=== PATIENT | female | born 1975 | race Caucasian/White ===

== ENCOUNTER 2023-05-13 15:39 | Emergency (ER) | payer SELFPAY ==
[~2023-05-13] VITALS: Ht 165.1 cm; Wt 79.6 kg
[2023-05-13] VITALS (10 sets, daily range): BP systolic 116–158; BP diastolic 77–102
[2023-05-13 16:37] LABS: BASO% 0.1 % (0-3); HEMATOCRIT 37.4 % (37.0-47.0); HEMOGLOBIN 12.7 g/dl (12.0-16.0); IMMATURE GRANULOCYTES 0.4 % (0.0-5.0); LYMPH% 4.2 % (15-41); MEAN CELL VOLUME 98.4 fL CALC (80.0-100.0); MEAN CORPUSCULAR HGB 33.4 pG CALC (26.0-32.0); MONO% 11.5 % (2-13); NEUT# 11.32 thou/uL (2.00-7.15); NEUT% 83.8 % (42-76); RED BLOOD COUNT 3.8 mill/uL (4.20-5.60); RED CELL DISTRI WIDTH 13.5 % (11.5-15.5)
[2023-05-13 16:59] LABS: URINE BLOOD DIPSTICK LARGE (NEGATIVE); URINE COLOR DK. YELLOW; URINE GLUCOSE - DIPSTICK NEGATIVE (NEGATIVE); URINE KETONE TRACE mg/dL (NEGATIVE); URINE LEUK ESTERASE LARGE (NEGATIVE); URINE NITRITE - DIPSTICK NEGATIVE (Negative); URINE PROTEIN - DIPSTICK >=300 mg/dL (NEG-TRACE); URINE SPECIFIC GRAVITY 1.025; URINE UROBILINOGEN - DIPSTICK >=8.0 E.U./dL (0.2)
[2023-05-13 17:00] LABS: URINE BACTERIA MANY hpf; URINE SQUAMOUS EPITHELIAL CELL FEW EPI/hpf (0-FEW); URINE WBC >100 WBC/hpf (0-5)
[2023-05-13 17:03] LABS: ALBUMIN 3.3 g/dL (3.2-5.0); BILIRUBIN, TOTAL 1.8 mg/dL (0.02-1.3); CREATININE 1.2 mg/dL (0.5-1.0); POTASSIUM 3.2 mmol/l (3.5-5.1); TOTAL PROTEIN 6.5 g/dL (6.3-8.2)
== END 2023-05-13 21:56 | disposition short-term general hospital (02) | DRG 690 ==
LOC: ED 15:39
PROVIDERS: Nurse Practitioner
DX: N13.6 Pyonephrosis (principal); Z87.442 Personal history of urinary calculi; Z87.440 Personal history of urinary (tract) infections; B19.20 Unspecified viral hepatitis C without hepatic coma
CPT/HCPCS: Q9967

== ENCOUNTER 2023-05-16 05:33 | Emergency (ER) | payer SELFPAY ==
[2023-05-16] VITALS (9 sets, daily range): BP systolic 120–153; BP diastolic 72–119
[~2023-05-16] VITALS: Ht 165.1 cm; Wt 79.0 kg
[2023-05-16] MEDS ORDERED: LEVOFLOXACIN500MG PO (06:48)
[2023-05-16 08:12] LABS: URINE BILIRUBIN - DIPSTICK NEGATIVE (NEGATIVE); URINE BLOOD DIPSTICK LARGE (NEGATIVE); URINE COLOR YELLOW; URINE GLUCOSE - DIPSTICK NEGATIVE (NEGATIVE); URINE KETONE NEGATIVE (NEGATIVE); URINE PROTEIN - DIPSTICK 30 mg/dL (NEG-TRACE); URINE SPECIFIC GRAVITY <=1.005
[2023-05-16 08:13] LABS: URINE LEUK ESTERASE SMALL (NEGATIVE); URINE NITRITE - DIPSTICK NEGATIVE (Negative)
[2023-05-16 08:17] LABS: URINE RBC 25-50 RBC/hpf (0-5)
[2023-05-16 08:19] LABS: URINE BACTERIA FEW hpf
[2023-05-16 08:48] LABS: BASO% 0.1 % (0-3); EOS% 0.1 % (0-8); HEMATOCRIT 31.5 % (37.0-47.0); IMMATURE GRANULOCYTES 1.5 % (0.0-5.0); LYMPH% 10.3 % (15-41); MEAN CELL VOLUME 99.1 fL CALC (80.0-100.0); MEAN CORPUSCULAR HGB 32.7 pG CALC (26.0-32.0); NEUT# 7.5 thou/uL (2.00-7.15); RED BLOOD COUNT 3.18 mill/uL (4.20-5.60); RED CELL DISTRI WIDTH 13.8 % (11.5-15.5)
[2023-05-16 08:53] LABS: ALKALINE PHOSPHATASE 162 u/l (38-126); BUN 13 mg/dL (7-17); BUN/CREATININE RATIO 13 (12-20 (CALC)); CARBON DIOXIDE 20 mmol/l (22-30); CHLORIDE 107 mmol/l (95-108); GFR FOR AFR.AMER. > 60 ML/MIN (>=60 (CALC)); GFR OTHER RACES 59 ML/MIN (>=60 (CALC)); POTASSIUM 3.1 mmol/l (3.5-5.1); TOTAL PROTEIN 6.4 g/dL (6.3-8.2)
[2023-05-16 08:55] LABS: ANION GAP 17 (6-22 (CALC)); BILIRUBIN, TOTAL 0.9 mg/dL (0.02-1.3); HEMOGLOBIN 10.4 g/dl (12.0-16.0); SGOT/AST 232 u/l (14-36); SODIUM 141 mmol/l (137-146)
== END 2023-05-16 12:37 | disposition short-term general hospital (02) | DRG 690 ==
LOC: ED 05:33
PROVIDERS: Family Medicine
PROC: 02HV33Z Insertion of Infusion Device into Superior Vena Cava, Percutaneous Approach (ICD-10-PCS; principal; 2023-05-16)
DX: N13.6 Pyonephrosis (principal); F17.200 Nicotine dependence, unspecified, uncomplicated; Z59.00 Homelessness unspecified; Z87.442 Personal history of urinary calculi

== ENCOUNTER 2023-12-21 05:33 | Observation (INO) | payer SELFPAY ==
[2023-12-21] VITALS (11 sets, daily range): BP systolic 103–156; BP diastolic 59–134
[~2023-12-21] VITALS: Ht 165.1 cm; Wt 90.0 kg
[~2023-12-21 05:33] MED LIST: BACTRIM DS1 TAB PO; IBUPROFEN600 MG PO; LEVOFLOXACIN500MG PO; TAMSULOSIN0.4 MG PO
[2023-12-21 06:31] LABS: URINE BILIRUBIN - DIPSTICK Negative (NEGATIVE); URINE BLOOD DIPSTICK Moderate (NEGATIVE); URINE COLOR Yellow; URINE GLUCOSE - DIPSTICK Negative (NEGATIVE); URINE LEUK ESTERASE Large (NEGATIVE); URINE NITRITE - DIPSTICK Negative (Negative); URINE PH 5.5 (4.5-8.0); URINE PROTEIN - DIPSTICK 100 mg/dL (NEG-TRACE); URINE UROBILINOGEN - DIPSTICK 0.2 E.U./dL (0.2)
[2023-12-21 06:32] LABS: URINE KETONE Negative (NEGATIVE)
[2023-12-21 06:35] LABS: URINE BACTERIA MANY hpf; URINE EPITHELIAL CELLS MODERATE EPI/hpf (0-FEW); URINE WBC >100 WBC/hpf (0-5)
[2023-12-21 06:51] LABS: BASO% 0.4 % (0-3); HEMATOCRIT 43.6 % (37.0-47.0); HEMOGLOBIN 14.5 g/dl (12.0-16.0); IMMATURE GRANULOCYTES 0.4 % (0.0-5.0); LYMPH% 41.7 % (15-41); MEAN CELL VOLUME 104.3 fL CALC (80.0-100.0); MEAN CORPUSCULAR HGB 34.7 pG CALC (26.0-32.0); MEAN CORPUSCULAR HGB CONC 33.3 g/dL CAL (32.0-36.0); MONO% 7.2 % (2-13); NEUT# 3.78 thou/uL (2.00-7.15); NEUT% 49.3 % (42-76); RED BLOOD COUNT 4.18 mill/uL (4.20-5.60); RED CELL DISTRI WIDTH 12.4 % (11.5-15.5)
[2023-12-21 07:05] LABS: ANION GAP 18 (6-22 (CALC)); BUN 13 mg/dL (7-17); BUN/CREATININE RATIO 17 (12-20 (CALC)); CARBON DIOXIDE 22 mmol/l (22-30); CHLORIDE 109 mmol/l (95-108); CREATININE 0.8 mg/dL (0.5-1.0); ETHYL ALCOHOL 274 mg/dl (0-30); GFR FOR AFR.AMER. > 60 ML/MIN (>=60 (CALC)); GFR OTHER RACES > 60 ML/MIN (>=60 (CALC)); POTASSIUM 4.2 mmol/l (3.5-5.1); SODIUM 145 mmol/l (137-146)
== END 2023-12-21 15:31 | disposition left against medical advice (07) | DRG 694 ==
LOC: ED 05:33 → ED-I 06:00 → ED 11:19 → ED-I 11:20 → ICU 14:06
PROVIDERS: Family Medicine; ADMIT Student in an Organized Health Care Education/Training Program; ATTEND Student in an Organized Health Care Education/Training Program
PROC: 02HV33Z Insertion of Infusion Device into Superior Vena Cava, Percutaneous Approach (ICD-10-PCS; principal; 2023-12-21)
DX: N20.2 Calculus of kidney with calculus of ureter (principal); N39.0 Urinary tract infection, site not specified; J44.9 Chronic obstructive pulmonary disease, unspecified; F41.9 Anxiety disorder, unspecified; F17.210 Nicotine dependence, cigarettes, uncomplicated; Z59.00 Homelessness unspecified; Z87.440 Personal history of urinary (tract) infections; Z87.442 Personal history of urinary calculi; Z86.711 Personal history of pulmonary embolism; Z20.822 Contact with and (suspected) exposure to COVID-19

== ENCOUNTER 2024-05-15 02:16 | Inpatient (IN) | payer SELFPAY ==
[2024-05-15] VITALS (8 sets, daily range): BP systolic 125–161; BP diastolic 56–95
[~2024-05-15] VITALS: Ht 165.1 cm; Wt 79.0 kg
[~2024-05-15 02:16] MED LIST changes: +CEPHALEXIN500 M1 PO; +OMNICEF300 MG PO
[2024-05-15] MEDS ORDERED: PT NOT TAKING MEDS (02:36)
[2024-05-15] MEDS ORDERED: KETOROLAC TROMETHAMINE 15 MG/ML SDV IV STA (03:21)
[2024-05-15 03:45] LABS: BASO% 0.5 % (0-3); EOS% 2.1 % (0-8); IMMATURE GRANULOCYTES 1.3 % (0.0-5.0); LYMPH% 51.9 % (15-41); MEAN CELL VOLUME 102.3 fL CALC (80.0-100.0); MEAN CORPUSCULAR HGB 32.9 pG CALC (26.0-32.0); MEAN CORPUSCULAR HGB CONC 32.2 g/dL CAL (32.0-36.0); MONO% 7.7 % (2-13); NEUT# 2.28 thou/uL (2.00-7.15); NEUT% 36.5 % (42-76); RED BLOOD COUNT 3.98 mill/uL (4.20-5.60); RED CELL DISTRI WIDTH 14.5 % (11.5-15.5)
[2024-05-15 03:49] LABS: HEMATOCRIT 40.7 % (37.0-47.0); HEMOGLOBIN 13.1 g/dl (12.0-16.0)
[2024-05-15 03:51] LABS: URINE COLOR Yellow
[2024-05-15 03:52] LABS: URINE GLUCOSE - DIPSTICK Negative (NEGATIVE)
[2024-05-15 03:53] LABS: URINE BILIRUBIN - DIPSTICK Negative (NEGATIVE); URINE KETONE Negative (NEGATIVE)
[2024-05-15 03:54] LABS: URINE SPECIFIC GRAVITY 1.015
[2024-05-15 03:55] LABS: URINE BLOOD DIPSTICK Moderate (NEGATIVE); URINE NITRITE - DIPSTICK Negative (Negative); URINE PROTEIN - DIPSTICK Trace mg/dL (NEG-TRACE); URINE UROBILINOGEN - DIPSTICK 0.2 E.U./dL (0.2)
[2024-05-15 03:56] LABS: URINE LEUK ESTERASE Large (NEGATIVE)
[2024-05-15 03:58] LABS: ALBUMIN 3.9 g/dL (3.2-5.0); BILIRUBIN, TOTAL 0.6 mg/dL (0.02-1.3); CREATININE 0.9 mg/dL (0.5-1.0); POTASSIUM 3.7 mmol/l (3.5-5.1); TOTAL PROTEIN 7.5 g/dL (6.3-8.2)
[2024-05-15 04:02] LABS: URINE BACTERIA MODERATE hpf; URINE SQUAMOUS EPITHELIAL CELL FEW EPI/hpf (0-FEW); URINE WBC 20-50 WBC/hpf (0-5); URINE YEAST MODERATE hpf
[2024-05-15] MEDS ORDERED: VANCOMYCIN HCL 1 GM in SODIUM CHLORIDE 0.9% 250 ML IV ONE (04:40)
[2024-05-15] MEDS ORDERED: ACETAMINOPHEN 500 MG TAB PO ONE (04:40)
[2024-05-15] MEDS ORDERED: DICYCLOMINE HCL 20 MG/2 ML VIAL IM ONE (04:40)
[2024-05-15] MEDS ORDERED: SODIUM CHLORIDE 0.9% 1,000 ML IV ONE ×4 (04:40)
[2024-05-15] MEDS ORDERED: PIPERACILLIN Sodium-Tazobactam 3.375 GM in SODIUM CHLORIDE 0.9% 100 ML IV ONE (04:40)
[2024-05-15] MEDS ORDERED: PIPERACILLIN Sodium-Tazobactam 4.5 GM in SODIUM CHLORIDE 0.9% 100 ML IV STA (06:57)
[2024-05-15] MEDS ORDERED: VANCOMYCIN HCL 1 GM in SODIUM CHLORIDE 0.9% 250 ML IV STA (06:57)
[2024-05-15] MEDS ORDERED: ONDANSETRON 4 MG/TAB ODT PO PRN (07:00)
[2024-05-15] MEDS ORDERED: MAGNESIUM HYDROXIDE 30 ML UDC PO PRN (07:00)
[2024-05-15] MEDS ORDERED: FAMOTIDINE 10MG/ML 2ML SDV IV PRN (07:00)
[2024-05-15] MEDS ORDERED: ONDANSETRON HCl 4 MG/2 ML SDV IV PRN ×2 (07:00→12:55)
[2024-05-15] MEDS ORDERED: ALUM & MAG HYDROX-SIMETHICONE 30 ML PO PRN (07:00)
[2024-05-15] MEDS ORDERED: IBUPROFEN 800 MG/TAB PO PRN (07:00)
[2024-05-15] MEDS ORDERED: SODIUM CHLORIDE 0.9% 1,000 ML IV PRN (07:40)
[2024-05-15] MEDS ORDERED: ACETAMINOPHEN 325 MG/TAB PO PRN (07:40)
[2024-05-15] MEDS ORDERED: KETOROLAC TROMETHAMINE 30 MG/ML SDV IV PRN (11:15)
[2024-05-15] MEDS ORDERED: PANTOPRAZOLE SODIUM Sesquihydr 40 MG/TAB PO SCH (12:00)
[2024-05-15] MEDS ORDERED: LORazepam 2 MG/ML IM PRN (13:25)
[2024-05-15] MEDS ORDERED: cloNIDine HCL 0.1 MG/TAB PO PRN (13:25)
[2024-05-15] MEDS ORDERED: LORazepam 2 MG/ML IV PRN (13:25)
[2024-05-15] MEDS ORDERED: chlordiazePOXIDE HCL 25 MG CAP PO PRN (13:25)
[2024-05-15] MEDS ORDERED: MULTIPLE VITAMIN 10 ML,THIAMINE HCL 100 MG in DEXTROSE 5% / 0.9% NACL 1,000 ML IV SCH (15:30)
[2024-05-15] MEDS ORDERED: DEXTROSE IV ONE (15:57)
[2024-05-15] MEDS ORDERED: NACL IV ONE (15:57)
[2024-05-15] MEDS ORDERED: FLUCONAZOLE 50 MG TAB PO SCH (16:35)
[2024-05-15] MEDS ORDERED: LORazepam 0.5 MG/TAB PO PRN (19:20)
[2024-05-15] MEDS ORDERED: DEXTROSE 50% 50 ML/SYR IV PRN (19:20)
[2024-05-15] MEDS ORDERED: DEXTROSE 250 ML IV PRN (19:20)
[2024-05-15 20:56] LABS: C. DIFFICILE TOXIN A&B NEGATIVE (NEGATIVE)
[2024-05-15] MEDS ORDERED: INSULIN LISPRO 100 UNITS/ML ML SC SCH (21:00)
[2024-05-15] MEDS ORDERED: ENOXAPARIN SODIUM 40 MG/0.4 ML SYR SC SCH (21:00)
[2024-05-16] MEDS ORDERED: VANCOMYCIN HCL 125 MG/CAP PO SCH
[2024-05-16 00:45] VITALS: BP 160/72
[2024-05-16 04:21] VITALS: BP 155/84
[2024-05-16 05:30] LABS: BASO% 0.5 % (0-3); IMMATURE GRANULOCYTES 0.2 % (0.0-5.0); LYMPH% 39.2 % (15-41); MEAN CORPUSCULAR HGB 33.8 pG CALC (26.0-32.0); MEAN CORPUSCULAR HGB CONC 32.5 g/dL CAL (32.0-36.0); MONO% 12.7 % (2-13); NEUT# 1.82 thou/uL (2.00-7.15); NEUT% 45.4 % (42-76); RED BLOOD COUNT 2.99 mill/uL (4.20-5.60)
[2024-05-16 05:42] LABS: HEMATOCRIT 31.1 % (37.0-47.0); HEMOGLOBIN 10.1 g/dl (12.0-16.0)
[2024-05-16 05:45] LABS: INTERNATIONAL NORMALIZED RATIO 1.2 RATIO (0.7-1.3)
[2024-05-16 05:48] LABS: BILIRUBIN, TOTAL 0.7 mg/dL (0.02-1.3); CREATININE 0.7 mg/dL (0.5-1.0); MAGNESIUM 1.5 mg/dL (1.6-2.3); POTASSIUM 3.7 mmol/l (3.5-5.1)
[2024-05-16 05:55] LABS: ALBUMIN 2.6 g/dL (3.2-5.0); TOTAL PROTEIN 5.5 g/dL (6.3-8.2)
[2024-05-16 07:22] VITALS: BP 141/79
[2024-05-16] MEDS ORDERED: TAMSULOSIN HCL 0.4 MG CAP PO SCH (08:00)
[2024-05-16] MEDS ORDERED: MAGNESIUM SULFATE HEPTAHYDRATE 50 ML IV SCH (09:00)
[2024-05-16] MEDS ORDERED: YEAST (S. BOULARDII)(S. CEREVI 250 MG CAP PO SCH (09:00)
[2024-05-16 10:40] VITALS: BP 133/57
[2024-05-16 14:13] VITALS: BP 147/75
[2024-05-16] MEDS ORDERED: FLUCONAZOLE 50 MG TAB PO SCH (15:00)
[2024-05-16 19:05] VITALS: BP 151/86
[2024-05-17] VITALS (13 sets, daily range): BP systolic 130–177; BP diastolic 62–99
[2024-05-17 06:32] LABS: HEMATOCRIT 31.4 % (37.0-47.0); HEMOGLOBIN 10.1 g/dl (12.0-16.0); MEAN CELL VOLUME 103.3 fL CALC (80.0-100.0); MEAN CORPUSCULAR HGB 33.2 pG CALC (26.0-32.0); MEAN CORPUSCULAR HGB CONC 32.2 g/dL CAL (32.0-36.0); RED BLOOD COUNT 3.04 mill/uL (4.20-5.60); RED CELL DISTRI WIDTH 13.6 % (11.5-15.5)
[2024-05-17 06:43] LABS: ALBUMIN 2.8 g/dL (3.2-5.0); BILIRUBIN, TOTAL 0.6 mg/dL (0.02-1.3); CREATININE 0.7 mg/dL (0.5-1.0); MAGNESIUM 1.7 mg/dL (1.6-2.3); POTASSIUM 3.7 mmol/l (3.5-5.1); TOTAL PROTEIN 5.8 g/dL (6.3-8.2)
[2024-05-17] MEDS ORDERED: DEXAMETHASONE SODIUM PHOSPHATE PF 10 MG/ML SDV IV ONE (08:34)
[2024-05-17] MEDS ORDERED: MIDAZOLAM HCL 2 MG/2 ML VIAL IV ONE (08:34)
[2024-05-17] MEDS ORDERED: ROCURONIUM BROMIDE 10 MG/ML 5ML VIAL IV ONE (08:34)
[2024-05-17] MEDS ORDERED: SUGAMMADEX SODIUM 200 MG/2 ML SDV IV ONE (08:34)
[2024-05-17] MEDS ORDERED: SUCCINYLCHOLINE CHLORIDE 20 MG/ML 10ML VIAL IV ONE (08:34)
[2024-05-17] MEDS ORDERED: LIDOCAINE HCL 2% 2ML SDV IV ONE (08:34)
[2024-05-17] MEDS ORDERED: ONDANSETRON HCl 4 MG/2 ML SDV IV ONE (08:34)
[2024-05-17] MEDS ORDERED: PROPOFOL 200 MG/20 ML VIAL IV ONE (08:34)
[2024-05-17] MEDS ORDERED: KETOROLAC TROMETHAMINE 30 MG/ML SDV IV ONE (08:34)
[2024-05-17] MEDS ORDERED: THIAMINE HCL 100 MG TAB PO SCH (09:00)
[2024-05-17] MEDS ORDERED: MULTIPLE VITAMIN TABLET PO SCH (09:00)
[2024-05-17] MEDS ORDERED: FOLIC ACID 1 MG/TAB PO SCH (09:00)
[2024-05-17] MEDS ORDERED: Iopamidol 300 (Isovue) 61% 100ML SDV IV ONE (09:25)
[2024-05-17] MEDS ORDERED: SODIUM CHLORIDE 0.9% 1,000 ML IV ONE ×3 (09:37→12:12)
[2024-05-17] MEDS ORDERED: FAMOTIDINE 10MG/ML 2ML SDV IV ONE (10:05)
[2024-05-17] MEDS ORDERED: cefTRIAXone SODIUM 1 GM/VIAL SDV ONE (10:28)
[2024-05-17] MEDS ORDERED: SODIUM CHLORIDE 0.9% 100 ML IV ONE ×2 (10:30)
[2024-05-17] MEDS ORDERED: GENTAMICIN SULFATE ONE (10:30)
[2024-05-17] MEDS ORDERED: STERILE WATER FOR IRRIGATION 1,000 ML BTL IR ONE (12:03)
[2024-05-17] MEDS ORDERED: PHENAZOPYRIDINE HCL 100 MG/TAB PO SCH (14:00)
[2024-05-18] VITALS (7 sets, daily range): BP systolic 133–182; BP diastolic 68–96
[2024-05-18 05:52] LABS: HEMATOCRIT 31.3 % (37.0-47.0); HEMOGLOBIN 10.4 g/dl (12.0-16.0); MEAN CELL VOLUME 101.3 fL CALC (80.0-100.0); MEAN CORPUSCULAR HGB 33.7 pG CALC (26.0-32.0); MEAN CORPUSCULAR HGB CONC 33.2 g/dL CAL (32.0-36.0); RED BLOOD COUNT 3.09 mill/uL (4.20-5.60); RED CELL DISTRI WIDTH 13.5 % (11.5-15.5)
[2024-05-18 06:18] LABS: ALBUMIN 3.1 g/dL (3.2-5.0); BILIRUBIN, TOTAL 0.6 mg/dL (0.02-1.3); CREATININE 0.8 mg/dL (0.5-1.0); MAGNESIUM 1.7 mg/dL (1.6-2.3); POTASSIUM 4.3 mmol/l (3.5-5.1); TOTAL PROTEIN 6.2 g/dL (6.3-8.2)
[2024-05-18] MEDS ORDERED: PHENAZOPYRIDINE HCL 100 MG/TAB PO PRN (09:45)
[2024-05-18] MEDS ORDERED: hydrALAZINE HCL 20 MG/ML VIAL(1 ML) IV PRN (10:30)
[2024-05-19 04:23] VITALS: BP 159/77
[2024-05-19 04:58] LABS: BASO% 0.1 % (0-3); EOS% 0.3 % (0-8); HEMOGLOBIN 9.4 g/dl (12.0-16.0); IMMATURE GRANULOCYTES 0.2 % (0.0-5.0); LYMPH% 18.1 % (15-41); MEAN CELL VOLUME 105.1 fL CALC (80.0-100.0); MEAN CORPUSCULAR HGB 34.1 pG CALC (26.0-32.0); MEAN CORPUSCULAR HGB CONC 32.4 g/dL CAL (32.0-36.0); MONO% 7.1 % (2-13); NEUT# 7.25 thou/uL (2.00-7.15); NEUT% 74.2 % (42-76); RED BLOOD COUNT 2.76 mill/uL (4.20-5.60); RED CELL DISTRI WIDTH 13.7 % (11.5-15.5)
[2024-05-19 05:10] LABS: ALBUMIN 2.9 g/dL (3.2-5.0); CREATININE 1.2 mg/dL (0.5-1.0); MAGNESIUM 1.7 mg/dL (1.6-2.3); POTASSIUM 3.9 mmol/l (3.5-5.1); TOTAL PROTEIN 5.8 g/dL (6.3-8.2)
[2024-05-19 05:13] LABS: BILIRUBIN, TOTAL 0.3 mg/dL (0.02-1.3)
[2024-05-19 06:20] VITALS: BP 168/93
[2024-05-19 10:46] VITALS: BP 171/82
[2024-05-19] MEDS ORDERED: TAMSULOSIN HCL0.4 MG PO (11:16)
[2024-05-19] MEDS ORDERED: PYRIDIUM200 MG PO (11:16)
[2024-05-19] MEDS ORDERED: CIPROFLOXACN500 MG PO (11:17)
[2024-05-19] MEDS ORDERED: (None)125 MG PO (11:18)
== END 2024-05-19 13:52 | disposition home or self-care (01) | DRG 660 ==
LOC: ED 02:16 → ED-I 06:36 → ED 07:00 → MS2 07:01
PROVIDERS: Internal Medicine; Internal Medicine Gastroenterology; Nurse Practitioner Family; ADMIT Internal Medicine; ATTEND Internal Medicine
PROC: 02HV33Z Insertion of Infusion Device into Superior Vena Cava, Percutaneous Approach (ICD-10-PCS; principal; 2024-05-15)
PROC: 0T778DZ Dilation of Left Ureter with Intraluminal Device, Via Natural or Artificial Opening Endoscopic (ICD-10-PCS; 2024-05-17)
PROC: 0TC18ZZ Extirpation of Matter from Left Kidney, Via Natural or Artificial Opening Endoscopic (ICD-10-PCS; 2024-05-17)
PROC: 0TC78ZZ Extirpation of Matter from Left Ureter, Via Natural or Artificial Opening Endoscopic (ICD-10-PCS; 2024-05-17)
PROC: 0TP98DZ Removal of Intraluminal Device from Ureter, Via Natural or Artificial Opening Endoscopic (ICD-10-PCS; 2024-05-17)
DX: N13.6 Pyonephrosis (principal); A04.72 Enterocolitis due to Clostridium difficile, not specified as recurrent; D68.51 Activated protein C resistance; E87.6 Hypokalemia; E83.42 Hypomagnesemia; R74.8 Abnormal levels of other serum enzymes; E11.9 Type 2 diabetes mellitus without complications; J44.9 Chronic obstructive pulmonary disease, unspecified; F41.9 Anxiety disorder, unspecified; F10.10 Alcohol abuse, uncomplicated; F17.200 Nicotine dependence, unspecified, uncomplicated; R00.1 Bradycardia, unspecified; T36.96XA Underdosing of unspecified systemic antibiotic, initial encounter; Z91.128 Patient's intentional underdosing of medication regimen for other reason; Z96.0 Presence of urogenital implants; Z86.14 Personal history of Methicillin resistant Staphylococcus aureus infection; Z86.711 Personal history of pulmonary embolism; Z87.442 Personal history of urinary calculi
CPT/HCPCS: J1100; J1650; J3475; Q9966

== ENCOUNTER 2024-05-21 17:00 | Emergency (ER) | payer SELFPAY ==
[~2024-05-21] VITALS: Ht 165.1 cm; Wt 79.0 kg
[2024-05-21] VITALS (38 sets, daily range): BP systolic 79–143; BP diastolic 32–82
[~2024-05-21 17:00] MED LIST changes: +(None)125 MG PO; +CIPROFLOXACN500 MG PO; +PT NOT TAKING MEDS; +PYRIDIUM200 MG PO; +TAMSULOSIN HCL0.4 MG PO
[2024-05-21] MEDS ORDERED: MULTIPLE VITAMIN 10 ML,THIAMINE HCL 100 MG in DEXTROSE 5% / 0.9% NACL 1,000 ML IV ONE (17:05)
[2024-05-21 17:57] LABS: BASO% 0.4 % (0-3); HEMOGLOBIN 11.3 g/dl (12.0-16.0); IMMATURE GRANULOCYTES 1.5 % (0.0-5.0); LYMPH% 34.8 % (15-41); MEAN CELL VOLUME 104.4 fL CALC (80.0-100.0); MEAN CORPUSCULAR HGB 33.4 pG CALC (26.0-32.0); MONO% 9.1 % (2-13); NEUT# 4.17 thou/uL (2.00-7.15); NEUT% 53.2 % (42-76); RED BLOOD COUNT 3.38 mill/uL (4.20-5.60); RED CELL DISTRI WIDTH 14.4 % (11.5-15.5)
[2024-05-21 17:58] LABS: HEMATOCRIT 35.3 % (37.0-47.0)
[2024-05-21 18:17] LABS: CREATININE 1.5 mg/dL (0.5-1.0); POTASSIUM 4.4 mmol/l (3.5-5.1)
[2024-05-21 18:20] LABS: ALBUMIN 4.1 g/dL (3.2-5.0); BILIRUBIN, TOTAL 0.9 mg/dL (0.02-1.3); TOTAL PROTEIN 7.7 g/dL (6.3-8.2)
[2024-05-21] MEDS ORDERED: DEXTROSE 250 ML IV ONE (18:50)
[2024-05-21 22:59] LABS: URINE BILIRUBIN - DIPSTICK Negative (NEGATIVE); URINE BLOOD DIPSTICK Moderate (NEGATIVE); URINE GLUCOSE - DIPSTICK Negative (NEGATIVE); URINE KETONE 15 mg/dL (NEGATIVE); URINE LEUK ESTERASE Trace (NEGATIVE); URINE NITRITE - DIPSTICK Negative (Negative); URINE PH 5.5 (4.5-8.0); URINE PROTEIN - DIPSTICK 100 mg/dL (NEG-TRACE); URINE UROBILINOGEN - DIPSTICK 0.2 E.U./dL (0.2)
[2024-05-21 23:13] LABS: URINE COLOR Yellow
[2024-05-21 23:14] LABS: URINE SQUAMOUS EPITHELIAL CELL MODERATE EPI/hpf (0-FEW)
[2024-05-21 23:16] LABS: URINE HYALINE CAST FEW lpf (NONE-RARE); URINE RBC 0-2 RBC/hpf (0-5)
[2024-05-21 23:17] LABS: URINE BACTERIA RARE hpf
[2024-05-22 02:35] VITALS: BP 136/82
== END 2024-05-22 02:35 | disposition home or self-care (01) | DRG 897 ==
LOC: ED 17:00
PROVIDERS: Family Medicine
DX: F10.129 Alcohol abuse with intoxication, unspecified (principal); D68.2 Hereditary deficiency of other clotting factors; Y90.8 Blood alcohol level of 240 mg/100 ml or more; E11.9 Type 2 diabetes mellitus without complications; J44.9 Chronic obstructive pulmonary disease, unspecified; F41.9 Anxiety disorder, unspecified; F17.200 Nicotine dependence, unspecified, uncomplicated; Z86.711 Personal history of pulmonary embolism

== ENCOUNTER 2024-07-08 19:34 | Emergency (ER) | payer SELFPAY ==
[~2024-07-08] VITALS: Ht 165.1 cm; Wt 79.0 kg
[2024-07-08] MEDS ORDERED: MORPHINE SULFATE 4 MG/ML VIAL IV ONE (20:00)
[2024-07-08] MEDS ORDERED: DICYCLOMINE HCL 10 MG/CAP PO ONE (20:00)
[2024-07-08] MEDS ORDERED: ONDANSETRON HCl 4 MG/2 ML SDV IV ONE (20:00)
[2024-07-08] MEDS ORDERED: KETOROLAC TROMETHAMINE 30 MG/ML SDV IV ONE (20:00)
[2024-07-08 20:04] VITALS: BP 114/88
[2024-07-08 20:44] LABS: BASO% 0.2 % (0-3); IMMATURE GRANULOCYTES 0.2 % (0.0-5.0); LYMPH% 16.9 % (15-41); MEAN CELL VOLUME 100.3 fL CALC (80.0-100.0); MEAN CORPUSCULAR HGB 34.1 pG CALC (26.0-32.0); NEUT# 3.7 thou/uL (2.00-7.15); NEUT% 71.7 % (42-76); RED BLOOD COUNT 3.99 mill/uL (4.20-5.60)
[2024-07-08 20:44] LABS: URINE BLOOD DIPSTICK Negative (NEGATIVE); URINE GLUCOSE - DIPSTICK 100 mg/dL (NEGATIVE); URINE KETONE 15 mg/dL (NEGATIVE); URINE LEUK ESTERASE Trace (NEGATIVE); URINE NITRITE - DIPSTICK Negative (Negative); URINE PROTEIN - DIPSTICK 100 mg/dL (NEG-TRACE); URINE SPECIFIC GRAVITY >=1.030
[2024-07-08 20:45] LABS: URINE COLOR Yellow
[2024-07-08 20:46] LABS: URINE SQUAMOUS EPITHELIAL CELL MODERATE EPI/hpf (0-FEW)
[2024-07-08 20:51] LABS: HEMOGLOBIN 13.6 g/dl (12.0-16.0)
[2024-07-08 20:56] LABS: ALBUMIN 4.1 g/dL (3.2-5.0); BILIRUBIN, TOTAL 1.1 mg/dL (0.02-1.3); CREATININE 0.9 mg/dL (0.5-1.0); POTASSIUM 3.7 mmol/l (3.5-5.1); TOTAL PROTEIN 7.8 g/dL (6.3-8.2)
[2024-07-08] MEDS ORDERED: cefTRIAXone SODIUM 2 GM in SODIUM CHLORIDE 0.9% 100 ML IV ONE (23:00)
[2024-07-09 00:20] VITALS: BP 136/99
== END 2024-07-09 00:23 | disposition left against medical advice (07) | DRG 690 ==
LOC: ED 19:34
PROVIDERS: Internal Medicine
DX: N13.6 Pyonephrosis (principal); D68.2 Hereditary deficiency of other clotting factors; E11.9 Type 2 diabetes mellitus without complications; J44.9 Chronic obstructive pulmonary disease, unspecified; F41.9 Anxiety disorder, unspecified; Z86.711 Personal history of pulmonary embolism; Z72.0 Tobacco use; Z53.29 Procedure and treatment not carried out because of patient's decision for other reasons

== ENCOUNTER 2024-11-02 00:20 | Inpatient (IN) | payer SELFPAY ==
[~2024-11-02] VITALS: Ht 165.1 cm; Wt 81.0 kg
[2024-11-02] VITALS (16 sets, daily range): BP systolic 108–160; BP diastolic 51–107
[2024-11-02] MEDS ORDERED: SODIUM CHLORIDE 0.9% 1,000 ML IV STA (00:39)
[2024-11-02 01:40] LABS: URINE BILIRUBIN - DIPSTICK Negative (NEGATIVE); URINE BLOOD DIPSTICK Small (NEGATIVE); URINE GLUCOSE - DIPSTICK Negative (NEGATIVE); URINE KETONE Negative (NEGATIVE); URINE NITRITE - DIPSTICK Negative (Negative); URINE PH 5.5 (4.5-8.0); URINE PROTEIN - DIPSTICK Negative (NEG-TRACE); URINE SPECIFIC GRAVITY <=1.005; URINE UROBILINOGEN - DIPSTICK 0.2 E.U./dL (0.2)
[2024-11-02 01:41] LABS: URINE COLOR Yellow; URINE LEUK ESTERASE Moderate (NEGATIVE)
[2024-11-02 01:42] LABS: BASO% 0.2 % (0-3); EOS% 0.7 % (0-8); HEMATOCRIT 33.9 % (37.0-47.0); HEMOGLOBIN 10.8 g/dl (12.0-16.0); IMMATURE GRANULOCYTES 0.1 % (0.0-5.0); LYMPH% 33.3 % (15-41); MEAN CELL VOLUME 113.8 fL CALC (80.0-100.0); MEAN CORPUSCULAR HGB 36.2 pG CALC (26.0-32.0); MEAN CORPUSCULAR HGB CONC 31.9 g/dL CAL (32.0-36.0); NEUT# 4.65 thou/uL (2.00-7.15); NEUT% 56.7 % (42-76); RED BLOOD COUNT 2.98 mill/uL (4.20-5.60); RED CELL DISTRI WIDTH 13.9 % (11.5-15.5)
[2024-11-02 01:46] LABS: URINE BACTERIA MODERATE hpf; URINE SQUAMOUS EPITHELIAL CELL FEW EPI/hpf (0-FEW)
[2024-11-02 01:50] LABS: ALBUMIN 3.6 g/dL (3.2-5.0); BILIRUBIN, TOTAL 1.5 mg/dL (0.02-1.3); CREATININE 1.1 mg/dL (0.5-1.0); POTASSIUM 3.8 mmol/l (3.5-5.1); TOTAL PROTEIN 7.9 g/dL (6.3-8.2)
[2024-11-02] MEDS ORDERED: IPRATROPIUM-Albuterol 0.5MG-2.5MG/3 ML NEB ONE (02:05)
[2024-11-02] MEDS ORDERED: methylPREDNISolone Sod Succ 40 MG/ML SDV IV ONE (02:10)
[2024-11-02] MEDS ORDERED: IBUPROFEN 600 MG/TAB PO ONE (02:15)
[2024-11-02] MEDS ORDERED: ACETAMINOPHEN 325 MG/TAB PO PRN (03:00)
[2024-11-02] MEDS ORDERED: MAGNESIUM HYDROXIDE 30 ML UDC PO PRN (03:00)
[2024-11-02] MEDS ORDERED: SODIUM CHLORIDE 0.9% 1,000 ML IV PRN (03:00)
[2024-11-02] MEDS ORDERED: SODIUM CHLORIDE 0.9% 50 ML IV ONE (03:36)
[2024-11-02] MEDS ORDERED: chlordiazePOXIDE HCL 25 MG CAP PO PRN (08:40)
[2024-11-02] MEDS ORDERED: LORazepam 2 MG/ML IV PRN (08:40)
[2024-11-02] MEDS ORDERED: KETOROLAC TROMETHAMINE 15 MG/ML SDV IV PRN (08:40)
[2024-11-02] MEDS ORDERED: MULTIPLE VITAMIN 10 ML,THIAMINE HCL 100 MG in SODIUM CHLORIDE 0.9% 1,000 ML IV SCH (10:00)
[2024-11-02] MEDS ORDERED: ENOXAPARIN SODIUM 40 MG/0.4 ML SYR SC SCH (21:00)
[2024-11-03] VITALS (12 sets, daily range): BP systolic 113–152; BP diastolic 69–87
[2024-11-03 05:42] LABS: BASO% 0.2 % (0-3); EOS% 0.2 % (0-8); HEMOGLOBIN 9.1 g/dl (12.0-16.0); IMMATURE GRANULOCYTES 0.2 % (0.0-5.0); LYMPH% 23.5 % (15-41); MEAN CORPUSCULAR HGB 36.8 pG CALC (26.0-32.0); MEAN CORPUSCULAR HGB CONC 32.6 g/dL CAL (32.0-36.0); MONO% 10.2 % (2-13); NEUT# 3.42 thou/uL (2.00-7.15); NEUT% 65.7 % (42-76); RED BLOOD COUNT 2.47 mill/uL (4.20-5.60); RED CELL DISTRI WIDTH 13.6 % (11.5-15.5)
[2024-11-03 05:53] LABS: BILIRUBIN, TOTAL 1.3 mg/dL (0.02-1.3); CREATININE 1.2 mg/dL (0.5-1.0); POTASSIUM 3.8 mmol/l (3.5-5.1); TOTAL PROTEIN 6.4 g/dL (6.3-8.2)
[2024-11-03 06:03] LABS: HEMATOCRIT 27.9 % (37.0-47.0)
[2024-11-03 06:09] LABS: ALBUMIN 2.8 g/dL (3.2-5.0); MAGNESIUM 1.2 mg/dL (1.6-2.3)
[2024-11-03] MEDS ORDERED: FAMOTIDINE 10MG/ML 2ML SDV IV ONE (07:00)
[2024-11-03] MEDS ORDERED: ISOVUE-300 (Iopamidol) 100 ML SDV IV ONE (07:15)
[2024-11-03] MEDS ORDERED: ONDANSETRON HCl 4 MG/2 ML SDV ONE (07:32)
[2024-11-03] MEDS ORDERED: MAGNESIUM SULFATE HEPTAHYDRATE 100 ML IV SCH (08:30)
[2024-11-03] MEDS ORDERED: ACETAMINOPHEN 100 ML IV ONE (08:45)
[2024-11-03] MEDS ORDERED: SODIUM CHLORIDE 1,000 ML BTL IR ONE (08:46)
[2024-11-03] MEDS ORDERED: SODIUM CHLORIDE 3,000 ML BAG FOR IRRIGATION IR ONE (08:46)
[2024-11-03] MEDS ORDERED: STERILE WATER FOR IRRIGATION 1,000 ML BTL IR ONE (08:46)
[2024-11-03] MEDS ORDERED: THIAMINE HCL 100 MG TAB PO SCH (09:00)
[2024-11-03] MEDS ORDERED: MULTIPLE VITAMIN TABLET PO SCH (09:00)
[2024-11-03] MEDS ORDERED: FOLIC ACID 1 MG/TAB PO SCH (09:00)
[2024-11-03] MEDS ORDERED: DEXTROSE 250 ML IV PRN (11:10)
[2024-11-03] MEDS ORDERED: MIDAZOLAM HCL 2 MG/2 ML VIAL IV ONE (12:58)
[2024-11-03] MEDS ORDERED: SUGAMMADEX SODIUM 200 MG/2 ML SDV IV ONE (12:58)
[2024-11-03] MEDS ORDERED: LIDOCAINE HCL 2% 2ML SDV IV ONE (12:58)
[2024-11-03] MEDS ORDERED: ROCURONIUM BROMIDE 10 MG/ML 5ML VIAL IV ONE (12:58)
[2024-11-03] MEDS ORDERED: SODIUM CHLORIDE 0.9% 1,000 ML BAG IV ONE (12:58)
[2024-11-03] MEDS ORDERED: DEXAMETHASONE SODIUM PHOSPHATE PF 10 MG/ML SDV IV ONE (12:58)
[2024-11-03] MEDS ORDERED: PROPOFOL 200 MG/20 ML VIAL IV ONE (12:58)
[2024-11-03] MEDS ORDERED: INSULIN LISPRO 100 UNITS/ML ML SC SCH (17:00)
[2024-11-04 04:18] VITALS: BP 132/71
[2024-11-04 05:17] LABS: ALBUMIN 2.6 g/dL (3.2-5.0); POTASSIUM 3.8 mmol/l (3.5-5.1); TOTAL PROTEIN 6.1 g/dL (6.3-8.2)
[2024-11-04 05:21] LABS: HEMOGLOBIN 8.6 g/dl (12.0-16.0); IMMATURE GRANULOCYTES 0.5 % (0.0-5.0); LYMPH% 10.7 % (15-41); MEAN CELL VOLUME 112.1 fL CALC (80.0-100.0); MEAN CORPUSCULAR HGB 37.1 pG CALC (26.0-32.0); MEAN CORPUSCULAR HGB CONC 33.1 g/dL CAL (32.0-36.0); MONO% 7.1 % (2-13); NEUT# 3.43 thou/uL (2.00-7.15); NEUT% 81.7 % (42-76); RED BLOOD COUNT 2.32 mill/uL (4.20-5.60)
[2024-11-04 05:22] LABS: CREATININE 0.9 mg/dL (0.5-1.0)
[2024-11-04 05:42] LABS: MAGNESIUM 1.6 mg/dL (1.6-2.3)
[2024-11-04 07:14] VITALS: BP 127/75
[2024-11-04 07:47] VITALS: BP 127/75
[2024-11-04] MEDS ORDERED: Meropenem 1 GM in SODIUM CHLORIDE 0.9% 100 ML IV SCH (08:00)
[2024-11-04] MEDS ORDERED: ERTAPENEM 1 GM in SODIUM CHLORIDE 0.9% 50 ML IV SCH (10:00)
[2024-11-04] MEDS ORDERED: ERTAPENEM1 G1 IM (13:50)
[2024-11-04 16:13] VITALS: BP 126/75
[2024-11-04 17:06] VITALS: BP 126/75
== END 2024-11-04 18:30 | disposition home or self-care (01) | DRG 660 ==
LOC: ED 00:20 → ED-I 02:42 → ED 02:56 → MS2 02:57
PROVIDERS: Emergency Medicine; Nurse Practitioner Family; ADMIT Student in an Organized Health Care Education/Training Program; ATTEND Student in an Organized Health Care Education/Training Program
PROC: 0TC78ZZ Extirpation of Matter from Left Ureter, Via Natural or Artificial Opening Endoscopic (ICD-10-PCS; principal; 2024-11-03)
PROC: 0T778DZ Dilation of Left Ureter with Intraluminal Device, Via Natural or Artificial Opening Endoscopic (ICD-10-PCS; 2024-11-03)
DX: N13.6 Pyonephrosis (principal); D68.2 Hereditary deficiency of other clotting factors; Z59.00 Homelessness unspecified; Z16.12 Extended spectrum beta lactamase (ESBL) resistance; B96.1 Klebsiella pneumoniae [K. pneumoniae] as the cause of diseases classified elsewhere; N17.9 Acute kidney failure, unspecified; I12.9 Hypertensive chronic kidney disease with stage 1 through stage 4 chronic kidney disease, or unspecified chronic kidney disease; E11.22 Type 2 diabetes mellitus with diabetic chronic kidney disease; N18.9 Chronic kidney disease, unspecified; J44.9 Chronic obstructive pulmonary disease, unspecified; F10.129 Alcohol abuse with intoxication, unspecified; E78.5 Hyperlipidemia, unspecified; F41.9 Anxiety disorder, unspecified; R79.89 Other specified abnormal findings of blood chemistry; F17.210 Nicotine dependence, cigarettes, uncomplicated; Y90.9 Presence of alcohol in blood, level not specified; Z86.711 Personal history of pulmonary embolism; Z87.442 Personal history of urinary calculi; Z91.148 Patient's other noncompliance with medication regimen for other reason
CPT/HCPCS: J0131; J1100; J1335; J1650; J1815; J2060; J3475; Q9966

== ENCOUNTER 2024-11-28 22:11 | Inpatient (IN) | payer SELFPAY ==
[~2024-11-28] VITALS: Ht 165.1 cm; Wt 90.0 kg
[~2024-11-28 22:11] MED LIST changes: +ERTAPENEM1 G1 IM
--- NOTE | 2024-11-28 23:27 | NUR ---
PT TO RM #10 WITH STEADY GAIT. NOTIFIED.
[2024-11-28 23:29] VITALS: BP 140/89
[2024-11-28] MEDS ORDERED: SODIUM CHLORIDE 0.9% 1,000 ML IV ONE (23:35)
[2024-11-28] MEDS ORDERED: ONDANSETRON HCl 4 MG/2 ML SDV IV ONE (23:35)
[2024-11-28 23:56] LABS: URINE BLOOD DIPSTICK Trace-lysed (NEGATIVE); URINE GLUCOSE - DIPSTICK Negative (NEGATIVE); URINE KETONE Trace mg/dL (NEGATIVE); URINE PROTEIN - DIPSTICK 100 mg/dL (NEG-TRACE); URINE SPECIFIC GRAVITY 1.015
[2024-11-28 23:57] LABS: BASO% 0.2 % (0-3); IMMATURE GRANULOCYTES 0.3 % (0.0-5.0); LYMPH% 25.4 % (15-41); MEAN CELL VOLUME 108.2 fL CALC (80.0-100.0); MEAN CORPUSCULAR HGB 35.9 pG CALC (26.0-32.0); MEAN CORPUSCULAR HGB CONC 33.1 g/dL CAL (32.0-36.0); MONO% 11.9 % (2-13); NEUT# 3.86 thou/uL (2.00-7.15); NEUT% 61.2 % (42-76); RED BLOOD COUNT 3.04 mill/uL (4.20-5.60)
[2024-11-28 23:59] LABS: URINE COLOR Yellow
[2024-11-29] VITALS (25 sets, daily range): BP systolic 101–135; BP diastolic 57–92
[2024-11-29] LABS: URINE LEUK ESTERASE Moderate (NEGATIVE); URINE NITRITE - DIPSTICK Positive (Negative)
--- NOTE | 2024-11-29 | NUR ---
PT MEDICATED PER ORDERS, UPDATED ON CONTINUOUS PLAN OF CARE, NAD NOTED, PT VOICES UNDERSTANDING WITH NO FURTHER QUESTIONS OR CONCERNS AT THIS TIME, PT VOICES APPRECIATION OF CARE.
[2024-11-29 00:02] LABS: HEMATOCRIT 32.9 % (37.0-47.0); HEMOGLOBIN 10.9 g/dl (12.0-16.0)
[2024-11-29 00:12] LABS: URINE BACTERIA MANY hpf; URINE RBC 0-2 RBC/hpf (0-5); URINE SQUAMOUS EPITHELIAL CELL FEW EPI/hpf (0-FEW); URINE WBC 20-50 WBC/hpf (0-5)
[2024-11-29 00:13] LABS: URINE CALCIUM OXALATE CRYSTALS MODERATE lpf; URINE HYALINE CAST RARE lpf (NONE-RARE)
[2024-11-29 00:20] LABS: ACT PARTIAL THROMBO TIME 26.1 SECONDS (20.0-32.5); INTERNATIONAL NORMALIZED RATIO 1.2 RATIO (0.7-1.3)
[2024-11-29 00:23] LABS: POTASSIUM 3.2 mmol/l (3.5-5.1)
[2024-11-29 00:24] LABS: ALBUMIN 3.6 g/dL (3.2-5.0); BILIRUBIN, TOTAL 1.6 mg/dL (0.02-1.3); TOTAL PROTEIN 7.5 g/dL (6.3-8.2)
--- NOTE | 2024-11-29 03:00 | NUR ---
MD RENOTIFIED OF PT COMPLETED RESULTS, PT VOICES MILD PAIN CONTINUES, MD AWARE, AWAITING ALL FURTHER ORDERS/RESULTS.
[2024-11-29] MEDS ORDERED: ACETAMINOPHEN 325 MG/TAB PO PRN (03:55)
[2024-11-29] MEDS ORDERED: MAGNESIUM HYDROXIDE 30 ML UDC PO PRN (03:55)
[2024-11-29] MEDS ORDERED: SODIUM CHLORIDE 0.9% 1,000 ML IV PRN (03:55)
--- NOTE | 2024-11-29 04:00 | NUR ---
ATTEMPTED TO PLACE PT ON MS2 BED FOR COMFORT, PT REFUSES AT THIS TIME, STATES SHE IS COMFORTABLE. NAD NOTED, VSS, PT VOICES APPRECIATION OF CARE.
--- NOTE | 2024-11-29 04:21 | NUR ---
PT MAINTENANCE FLUIDS VA HAM NOTED, EKG TKN, PT UPDATED ON CONTINUOUS PLAN OF CARE, PT VOICES NO DISCUSSION OF RESULTS WITH MD MAYI NOTIFIED OF PT STATEMENT AT THIS TIME. PT AWAITING .
[2024-11-29] MEDS ORDERED: LACTATED RINGER'S 1,000 ML IV PRN ×2 (04:30→11:25)
[2024-11-29] MEDS ORDERED: LORazepam 2 MG/ML IV PRN (04:30)
[2024-11-29] MEDS ORDERED: chlordiazePOXIDE HCL 25 MG CAP PO PRN (04:30)
[2024-11-29] MEDS ORDERED: cloNIDine HCL 0.1 MG/TAB PO PRN (04:30)
[2024-11-29 05:14] LABS: MAGNESIUM 1.5 mg/dL (1.6-2.3)
--- NOTE | 2024-11-29 05:25 | NUR ---
PT MEDICATED PER ORDERS, AMB TO BR FOR VOID AND BACK TO STRETCHER, PT VOICES APPRECIATION OF CARE, WILL CONTINUE TO MONITOR.
[2024-11-29 05:46] LABS: TSH, 3RD GENERATION 1.52 uIU/mL (0.47 - 4.68)
[2024-11-29] MEDS ORDERED: PIPERACILLIN Sodium-Tazobactam 3.375 GM in SODIUM CHLORIDE 0.9% 100 ML IV SCH (06:00)
--- NOTE | 2024-11-29 06:48 | NUR ---
REPORT CALLED TO LOUIE MELO AT THIS TIME. PT RESTING WITH NAD NOTED, PT EASILY AROUSABLE, PT IVF MAINTENANCE RUNNING PER ORDERS, PT VOICES MILD RELIEF WITH TYLENOL, PT AWAITING TRANSPORT TO MS2.
--- NOTE | 2024-11-29 07:00 | NUR ---
REPORT RECEIVED FROM OFF GOING NURSE. PATIENT NOTED LYING COMFORTABLY IN BED WITH NO ACUTE DISTRESS NOTED.
--- NOTE | 2024-11-29 07:49 | NUR ---
REPORT RECEIVED FROM TYLER IN ED, PT ARIRIVED ON UNIT VIA W/C TRNSPORTED BY ED STAFF AND AMBULATED TO BED, C/O LOWER AND SIDE PAINS @ "12" STATING SHE HAS BEEN HAVING THIS PAIN FOR PAST 4 DAYS. ALERT AND ORIENTED, EDUCATED ON FALL PREVENTIONS, ORIENTED TO ROOM AND CALL BOB, SERVED BREAKFAST MEAL.
--- NOTE | 2024-11-29 07:50 | NUR ---
PATIENT TO MED SURG VIA WHEELCHAIR AND RN.
[2024-11-29] MEDS ORDERED: ONDANSETRON 4 MG/TAB ODT PO PRN (11:25)
[2024-11-29] MEDS ORDERED: oxyCODONE HCL 5 MG/TAB PO PRN (11:25)
--- NOTE | 2024-11-29 20:00 | NUR ---
RECEIVED REPORT FROM DAYSHIFT NURSE. PT NOTED LAYING IN BED SUPINE, RM AIR. PT IS A/OX3, C/O MINOR PAIN IN FLANK AND ABD REGION BUT DENIES WANTING ANY PAIN MEDICAITON AT THIS TIME. NURSING ASSESSMENT COMPLETED, IV SITE APPEARS HEALTHY AND INTACT WITH IVF RUNNING PER EMAR. ABD IS DISTENDED AND FIRM, TENDERNESS TO ALL QAUDRANTS. CIWA SCORE OF 1 DUE TO PT HAVING MINOR TREMORS PRESENTS BUT OTHERWISE NO S/S OF WITHDRAWAL. EDUCATED PT ON PLAN OF CARE AND MED SCHEDULE. VSS. NO S/S OF DISTRESS. CALL LIGHT WITHIN REACH AND SAFETY PRECAUTIONS IN PLACE.
[2024-11-29] MEDS ORDERED: ENOXAPARIN SODIUM 40 MG/0.4 ML SYR SC SCH (21:00)
[2024-11-30 00:19] VITALS: BP 140/86
[2024-11-30 00:30] VITALS: BP 140/86
--- NOTE | 2024-11-30 00:30 | NUR ---
PAIN MEDICATION ADMINSITERED PER EMAR. PT LAYING IN BED SUPINE, WATCHING TV AT THIS TIME. IVF RUNNING PER EMAR. PT ENCOURAGED TO GET SOME SLEEP. VSS. NO S/S OF DISTRESS. CALL LIGHT WITHIN REACH AND SAFETY PRECAUTIONS IN PLACE.
[2024-11-30 04:36] LABS: BILIRUBIN, TOTAL 1.6 mg/dL (0.02-1.3); CREATININE 0.7 mg/dL (0.5-1.0); MAGNESIUM 1.3 mg/dL (1.6-2.3); POTASSIUM 3.2 mmol/l (3.5-5.1)
[2024-11-30 04:45] LABS: ALBUMIN 2.6 g/dL (3.2-5.0)
[2024-11-30 04:49] LABS: BASO% 0.3 % (0-3); EOS% 2.1 % (0-8); HEMATOCRIT 30.8 % (37.0-47.0); HEMOGLOBIN 9.7 g/dl (12.0-16.0); IMMATURE GRANULOCYTES 0.3 % (0.0-5.0); LYMPH% 28.4 % (15-41); MEAN CELL VOLUME 112.4 fL CALC (80.0-100.0); MEAN CORPUSCULAR HGB 35.4 pG CALC (26.0-32.0); MEAN CORPUSCULAR HGB CONC 31.5 g/dL CAL (32.0-36.0); MONO% 14.6 % (2-13); NEUT# 2.05 thou/uL (2.00-7.15); NEUT% 54.3 % (42-76); RED BLOOD COUNT 2.74 mill/uL (4.20-5.60)
[2024-11-30 05:21] VITALS: BP 127/81
--- NOTE | 2024-11-30 05:28 | NUR ---
PT LAYING IN BED ON LEFT SIDE, RESTING COMFORTABLY. SCHEDULED ABX ADMINISTERED PER EMAR. PT DENIES ANY N/V/P AT THIS TIME. VSS. NO S/S OF DISTRESS. CALL LIGHT WITHIN REACH AND SAFETY PRECAUTIONS IN PLACE.
[2024-11-30 06:07] VITALS: BP 127/81
--- NOTE | 2024-11-30 07:45 | NUR ---
SHIFT CHANGE REPORT, PT AWAKE ALERT AND ORIENTED RESTING IN BED AND WATCHING TV, C/O LEFT FLANK PAIN @ 9/10 AND ABD PAIN @ 7/10, IVF INFUSING, TELE MONITOR IN PLACE, CALL BOB IN REACH AND BED LOCKED IN LOWEST POSITION.
[2024-11-30 07:59] LABS: AMYLASE 59 u/l (30-110); LIPASE 158 u/l (23-300)
[2024-11-30] MEDS ORDERED: MAGNESIUM SULFATE HEPTAHYDRATE 100 ML IV SCH (08:30)
[2024-11-30] MEDS ORDERED: POTASSIUM CHLORIDE 20 MEQ/TAB PO SCH (08:30)
[2024-11-30] MEDS ORDERED: MULTIPLE VITAMIN TABLET PO SCH (09:00)
[2024-11-30] MEDS ORDERED: FOLIC ACID 1 MG/TAB PO SCH (09:00)
[2024-11-30] MEDS ORDERED: THIAMINE HCL 100 MG TAB PO SCH (09:00)
[2024-11-30] MEDS ORDERED: D5 1/2 NaCL W/KCL 20MEQ 1,000 ML IV PRN (11:30)
[2024-11-30] MEDS ORDERED: VANCOMYCIN HCL 125 MG/CAP PO SCH (12:00)
--- NOTE | 2024-11-30 12:00 | NUR ---
RESTING IN BED, PAIN CONCERNS ADDRESSED.
[2024-11-30 15:53] VITALS: BP 113/64
--- NOTE | 2024-11-30 19:25 | NUR ---
PT RESTING ON BED WATCHING TV AT THSI TIME. ALERT AND ORIENTED X3. RESPORTS PAIN IN HER LEFT ABD AREA 8/10 ON MASHA SCALE-STATED SHE ALREADY RECIEVED PAIN MED. DENIES ANY V/V. UPPER LUNG SOUNDS CLEARA TO AUSCULTATION-LOWER LOBES WITH WHEEZES. TELE ON PLACE SHOWING SR-70. 22 G IV RIGHT WRIST INFUSING POTASSIUM CHLORIDE IN 5% DEXTROSE AND 0.45% SODIUM CHLORIDE. PALAPABLE PEDAL PULSES. CALL LIGHT IN RECAH. DENIES ANY ADDITIONAL NEEDS
[2024-11-30 19:27] VITALS: BP 124/84
--- NOTE | 2024-11-30 19:37 | NUR ---
NO CHANGE IN CONDITION, ALL NEEDS ADDRESSED.
--- NOTE | 2024-11-30 20:00 | NUR ---
SPOKE WITH LONG IN THE LAB REGUARDING STOOL SPEC RESULTS. PATIENT HAD STOOL SPEC FOR C-DIFF TOX AB PCR SONE-DETECTED. COMFIRMATION TEST FOR C-DIFF TOX AB NEG-SAME STOOL SPEC FROM YESTERDAY. PER LONG PATIENT SHOULD BE TREATED POSITIVE RESULT. ALSO STOOL SPEC FOR SALMONELLA IS DETECTED. PATIENT WAS PLACED ON CONTACT PLUS ISOLATION. PATIENT IS ALREADY TAKING VANCO 125MG PO Q6H WILL CONT TO MONITOR.
--- NOTE | 2024-12-01 01:09 | NUR ---
PT RESTING ON BED WITH EYES CLOSED. NO DISTRESS NOTED. IVF REMAINS INFUSING AT 100 MLS/HR. TELE MONNIOR ON PLACE SHOWING SR-78 AT THIS MOMENT. CALL LIGHT IN REACH.
--- NOTE | 2024-12-01 02:50 | NUR ---
PATIENT COMPLAINIG OF HEADACHE, TREMORS, NAUSEA AND VOMITING. CIWA ASSESSMENT (14) MEDICATED WITH LIBRIUM 25 MG PO AT THIS TIME
--- NOTE | 2024-12-01 04:15 | NUR ---
PT RESTING ON BED WTACHING TV AT THIS TIME. IVF INSUING AT 100 CC. PT STATES SHE STILL HAS SOME TREMORS, NAUSEA AND VOMITING. WILL CONTINUE TO MONITOR. CALL LIGHT IN REACH
[2024-12-01 05:24] VITALS: BP 131/84
[2024-12-01 06:45] VITALS: BP 131/85
--- NOTE | 2024-12-01 07:20 | NUR ---
PT LAYING IN BED RESTING WITH EYES CLOSED, AROUSES EASILY TO VERBAL STIMULI, PT IS A&O X3, PUPILS PERRL, NORMAL S1 S2 HEART SOUNDS, TELE MONITOR IN PLACE, RESP. EVEN AND UNLABORED, LUNG SOUNDS ARE DIMINISHED IN THE BASES, ABD DISTENDED AND SOFT WITH ACTIVE BOWEL SOUNDS, STRONG RADIAL AND PEDAL PULSES, 22G RW IV WITH FLUIDS INFUSING AT PRESCRIBED RATE, SAFETY MEASURES REINFORCED, CALL BOB WITHIN REACH
[2024-12-01 08:50] LABS: BASO% 0.3 % (0-3); EOS% 2.8 % (0-8); HEMATOCRIT 29.6 % (37.0-47.0); HEMOGLOBIN 9.6 g/dl (12.0-16.0); IMMATURE GRANULOCYTES 0.6 % (0.0-5.0); LYMPH% 27.2 % (15-41); MEAN CORPUSCULAR HGB 35.7 pG CALC (26.0-32.0); MEAN CORPUSCULAR HGB CONC 32.4 g/dL CAL (32.0-36.0); MONO% 18.4 % (2-13); NEUT# 1.62 thou/uL (2.00-7.15); NEUT% 50.7 % (42-76); RED BLOOD COUNT 2.69 mill/uL (4.20-5.60); RED CELL DISTRI WIDTH 12.9 % (11.5-15.5)
[2024-12-01 09:11] LABS: ALBUMIN 2.4 g/dL (3.2-5.0); CREATININE 0.7 mg/dL (0.5-1.0); TOTAL PROTEIN 5.6 g/dL (6.3-8.2)
[2024-12-01 09:17] LABS: MAGNESIUM 1.8 mg/dL (1.6-2.3)
[2024-12-01 10:54] VITALS: BP 115/74
--- NOTE | 2024-12-01 12:00 | NUR ---
PT SITTING UP IN THE BED TALKING ON THE PHONE, PT DENIES ANY NEEDS AT THIS TIME, CALL BOB WITHIN REACH
[2024-12-01 15:39] VITALS: BP 127/85
--- NOTE | 2024-12-01 16:00 | NUR ---
PT SITTING UP IN THE BED WATCHING TV, PT DENIES ANY NEEDS AT THIS TIME, PT REMINDED TO CALL FOR ASSISTANCE, PT VERBALIZED UNDERSTANDING CALL BOB WITHIN REACH
[2024-12-01 18:40] VITALS: BP 129/84
--- NOTE | 2024-12-01 20:00 | NUR ---
PATIENT SITTING UP IN BED WATCHING TV AT THIS TIME-AWAKE ALERT AND ORIENTEDX3. PATIENT CONT TO C/O ABD PAIN, NAUSEA AND DIARRHEA. CONT TO BE ON CONTACT PLUS ISOLATION VAZQUEZ C-DIFF AND SALMONELLA. IVF D51/2NS WITH 20KCL PATENT AND INFUSING AT 100CC/HR. UP TO THE BR TO VOID WITHOUT DIFFICULTY PER PATIENT. STILL WITH LOOSE STOOLS. TELE MONITOR IN PLACE AND READING SR-80'S. LUNGS ARE CLEAR. ABD SOFT WITH ACTIVE BS. NO PERPHERAL EDEMA NOTED. CALL LIGHT IN REACH. WILL CONT TO MONITOR.
--- NOTE | 2024-12-01 23:00 | NUR ---
PATIENT RESTING IN BED-C/O ABD PAIN AND HEADACHE. CIWA OF 9. MEDICATED WITH LIBRIUM 25MG PO AND WITH ROXICODONE 5MG PO FOR ABD PAIN AND HEADACHE. TELE MONITOR IN PLACE. IVF PATENT AND INFUSING VIA RIGHT WRIST ORDERED AT 100CC/HR. CALL LIGHT IN REACH.WILL CONT TO MONITOR.
[2024-12-02 00:56] VITALS: BP 115/77
--- NOTE | 2024-12-02 05:00 | NUR ---
RESTING IN BED AT THIS TIME-APPEARS SLEEPING WITH EYES CLOSED. RESPS ARE EVEN AND UNLABORED. TELE MONITOR IN PLACE. IVF PATENT AND INFUSING ORDERED. PATIENT REMAINS ON ISOLATION FOR C-DIFF AND SALMONELLA. CALL LIGHT IN REACH. WILL CONT TO MONITOR.
[2024-12-02 05:13] VITALS: BP 136/83
[2024-12-02 05:47] LABS: BASO% 0.2 % (0-3); EOS% 2.7 % (0-8); HEMATOCRIT 29.9 % (37.0-47.0); HEMOGLOBIN 9.7 g/dl (12.0-16.0); IMMATURE GRANULOCYTES 0.7 % (0.0-5.0); LYMPH% 26.8 % (15-41); MEAN CORPUSCULAR HGB 36.3 pG CALC (26.0-32.0); MEAN CORPUSCULAR HGB CONC 32.4 g/dL CAL (32.0-36.0); MONO% 16.1 % (2-13); NEUT# 2.19 thou/uL (2.00-7.15); NEUT% 53.5 % (42-76); RED BLOOD COUNT 2.67 mill/uL (4.20-5.60); RED CELL DISTRI WIDTH 12.9 % (11.5-15.5)
[2024-12-02 06:04] LABS: ALBUMIN 2.6 g/dL (3.2-5.0); BILIRUBIN, TOTAL 1.1 mg/dL (0.02-1.3); CREATININE 0.7 mg/dL (0.5-1.0); MAGNESIUM 1.7 mg/dL (1.6-2.3); POTASSIUM 4.1 mmol/l (3.5-5.1); TOTAL PROTEIN 5.8 g/dL (6.3-8.2)
--- NOTE | 2024-12-02 07:05 | NUR ---
REPORT RECEIVED FROM LOUIE LOPEZ
[2024-12-02 08:01] VITALS: BP 111/70
--- NOTE | 2024-12-02 09:20 | NUR ---
PT RESTING IN SEMI FOWLERS POSITION,A&O X3;PT REPORTS ABDOMINAL/LOWER BACK PAIN AND IS MEDICATED WITH PRN ROXICODONE 5MG PO PER REQUEST;ASSESSMENT COMPLETED;RESPIRATIONS EVEN AND UNLABORED ON RA,CLEAR LUNG SOUNDS;ABDOMEN SOFT ON PALPATION AND ACTIVE IN ALL 4 QUADRANTS;STRONG PEDAL PULSES;SKIN INTACT;#22G TO RW INFUSING D5 1/2 NS W 20MEQ OF K @ 100ML/HR,SITE APPEARS HEALTHY;PT REMAINS ON CONTACT + PRECAUTIONS FOR CDIFF;PT DENIES ANY ADDITIONAL NEEDS AND IS ENCOURAGED TO CALL FOR ASSISTANCE IF NEEDED;FALL PRECAUTIONS IN PLACE WITH BED IN THE LOWEST POSITION AND CALL LIGHT IN REACH;FREQUENT ROUNDS MADE.
--- NOTE | 2024-12-02 10:30 | NUR ---
AT BEDSIDE DISCUSSING POC WITH PT
--- NOTE | 2024-12-02 11:30 | NUR ---
PT RESTING IN SEMI FOWLERS POSITION;RESPIRATIONS EVEN AND UNLABORED ON RA;PT DENIES ANY CURRENT PAIN OR NEEDS;IV SITE TO RW REMAINS PATENT AND ABX ADMINISTERED AT THIS TIME;PT ENCOURAGED TO CALL FOR ASSISTANCE IF NEEDED;CALL LIGHT IN REACH;FREQUENT ROUNDS MADE.
[2024-12-02] MEDS ORDERED: VANCOMYCIN HCL 125 MG/CAP PO SCH (12:00)
[2024-12-02] MEDS ORDERED: YEAST (S. BOULARDII)(S. CEREVI 250 MG CAP PO SCH (12:00)
--- NOTE | 2024-12-02 15:40 | NUR ---
PT RESTING IN SEMI FOWLERS POSITION;RESPIRATIONS EVEN AND UNLABORED ON RA;PT DENIES ANY CURRENT PAIN OR NEEDS;IV SITE TO RW CONTINUES TO INFUSE WITH EASE AT 100ML/HR;PT REPORTS ONE SMALL/LOOSE STOOL;CONTACT PLUS PRECAUTIONS REMAIN IN PLACE;PT DENIES ANY ADDITIONAL NEEDS;ENCOURAGED TO CALL FOR ASSISTANCE IF NEEDED;CALL LIGHT IN REACH;FREQUENT ROUNDS MADE.
[2024-12-02 16:54] VITALS: BP 109/68
--- NOTE | 2024-12-02 17:51 | NUR ---
PT MEDICATED WITH ROXICODONE 5MG PO AT THIS TIME PER REQUEST.
--- NOTE | 2024-12-02 19:20 | NUR ---
PATIENT OBSERVED RESTING IN BED. ALERT AND ORIENTED. ABLE TO MAKE NEEDS KNOWN. ASSESSMENT COMPLETE. NO COMPLAINTS OF PAIN. NO DISTRESS NOTED. DENIES NEEDING ANYTHING AT THIS TIME. BED REMAINS IN LOW POSITION. CALL BOB IN REACH.
[2024-12-02 20:01] VITALS: BP 127/80
--- NOTE | 2024-12-02 23:41 | NUR ---
PATIENT OBSERVED RESTING IN BED. DENIES NEEDING ANYTHING AT THIS TIME. NO COMPLAINTS VOICED. BED REMAINS IN LOW POSITION. CALL BOB IN REACH.
[2024-12-03 04:20] VITALS: BP 113/75
--- NOTE | 2024-12-03 04:20 | NUR ---
PATIENT REMAINS RESTING IN BED. DENIES NEEDING ANYTHING AT THIS TIME. BED REMAINS IN LOW POSITION. CALL BOB IN REACH. REMAINS ON ISOLATION.
--- NOTE | 2024-12-03 05:09 | NUR ---
Voids not measured due to having BM mixed with urine
--- NOTE | 2024-12-03 08:00 | NUR ---
PT RESTING IN BED. ASSESSMENT COMPLETED. NO COMPLAINTS VOICED AT THIS TIME. CALL LIGHT WITHIN REACH, INSTRUCTED TO USE CALL LIGHT IF SHE NEEDS ANYTHING. BED IN LOWEST POSITION.
[2024-12-03 08:59] VITALS: BP 129/81
--- NOTE | 2024-12-03 13:00 | NUR ---
PT STATES SHE IS FEELING A LITTLE ANXIOUS AND REQUESTED ATIVAN. ATIVAN 1MG GIVEN IVP PER MD ORDER. CALL LIGHT WITHIN REACH.
--- NOTE | 2024-12-03 16:18 | NUR ---
PT RESTING IN BED. NO CHANGE IN ASSESSMENT. CALL LIGHT WITHIN REACH.
[2024-12-03 16:22] VITALS: BP 90/52
--- NOTE | 2024-12-03 19:10 | NUR ---
PATIENT OBSERVED SITTING UP IN BED. ASSESSMENT COMPLETE. NO DISTRESS NOTED. NO COMPLAINTS VOICED AT THIS TIME. REMAINS ON ISOLATION. DENIES NEEDING ANYTHING AT THIS TIME. BED REMAINS IN LOW POSITION. CALL BOB IN REACH.
[2024-12-03 19:16] VITALS: BP 127/85
--- NOTE | 2024-12-04 00:16 | NUR ---
PRN ATIVAN GIVEN PER EMAR. TOLERATED WELL. DENIES NEEDING ANYTHING ELSE AT THIS TIME.
[2024-12-04 04:51] VITALS: BP 113/65
--- NOTE | 2024-12-04 04:51 | NUR ---
PATIENT REMAINS RESTING IN BED. DENIES NEEDING ANYTHING AT THIS TIME. BED REMAINS IN LOW POSITION. CALL BOB IN REACH.
[2024-12-04 06:15] LABS: BASO% 0.5 % (0-3); EOS% 2.7 % (0-8); HEMOGLOBIN 9.8 g/dl (12.0-16.0); IMMATURE GRANULOCYTES 0.5 % (0.0-5.0); LYMPH% 27.3 % (15-41); MEAN CELL VOLUME 109.5 fL CALC (80.0-100.0); MEAN CORPUSCULAR HGB 35.8 pG CALC (26.0-32.0); MEAN CORPUSCULAR HGB CONC 32.7 g/dL CAL (32.0-36.0); MONO% 20.3 % (2-13); NEUT# 1.82 thou/uL (2.00-7.15); NEUT% 48.7 % (42-76); RED BLOOD COUNT 2.74 mill/uL (4.20-5.60); RED CELL DISTRI WIDTH 12.9 % (11.5-15.5)
[2024-12-04 06:34] LABS: ALBUMIN 2.5 g/dL (3.2-5.0); BILIRUBIN, TOTAL 1.1 mg/dL (0.02-1.3); CREATININE 0.7 mg/dL (0.5-1.0); MAGNESIUM 1.6 mg/dL (1.6-2.3); POTASSIUM 4.2 mmol/l (3.5-5.1); TOTAL PROTEIN 5.9 g/dL (6.3-8.2)
[2024-12-04 07:10] VITALS: BP 119/68
--- NOTE | 2024-12-04 07:46 | NUR ---
PATIENT LYING IN BED WITH EYES CLOSED RESTING. BREATHING UNLABORED ON ROOM AIR. IV IN RAC INFUSING FLUIDS PER EMAR;SITE CLEAN AND INTACT. NO SIGNS OF DISTRESS OR PAIN NOTED. BED IN LOWEST POSITION. PERSONAL ITEMS WELL CALL LIGHT WITHIN REACH. POC ONGOING. NO NEEDS AT THIS TIME.
[2024-12-04] MEDS ORDERED: FLORASTOR250 M1 PO (09:19)
--- NOTE | 2024-12-04 12:34 | NUR ---
Discharge instructions given. Patient verbalizes understanding of same. Discharged in stable condition via Ambulatory to Home with *Other. All belongings sent with pt.
== END 2024-12-04 12:33 | disposition home or self-care (01) | DRG 689 ==
LOC: ED 22:11 → ED-I 11-29 03:44 → ED 11-29 03:54 → ED-I 11-29 03:55 → ED 11-29 04:00 → ED-I 11-29 04:00 → MS2 11-29 06:19
PROVIDERS: Family Medicine; Nurse Practitioner Family; ADMIT Internal Medicine; ATTEND Internal Medicine
DX: N10 Acute pyelonephritis (principal); K85.20 Alcohol induced acute pancreatitis without necrosis or infection; Z59.00 Homelessness unspecified; D68.51 Activated protein C resistance; A04.72 Enterocolitis due to Clostridium difficile, not specified as recurrent; D61.818 Other pancytopenia; N20.0 Calculus of kidney; F10.129 Alcohol abuse with intoxication, unspecified; Y90.7 Blood alcohol level of 200-239 mg/100 ml; K70.31 Alcoholic cirrhosis of liver with ascites; K70.10 Alcoholic hepatitis without ascites; I10 Essential (primary) hypertension; E11.9 Type 2 diabetes mellitus without complications; J44.9 Chronic obstructive pulmonary disease, unspecified; D53.9 Nutritional anemia, unspecified; D69.59 Other secondary thrombocytopenia; F17.200 Nicotine dependence, unspecified, uncomplicated; B96.20 Unspecified Escherichia coli [E. coli] as the cause of diseases classified elsewhere; Z87.442 Personal history of urinary calculi; Z91.199 Patient's noncompliance with other medical treatment and regimen due to unspecified reason; Z86.711 Personal history of pulmonary embolism
CPT/HCPCS: J0696; J1650; J2060; J2405; J2543; J3475

== ENCOUNTER 2024-12-25 00:28 | Emergency (ER) | payer SELFPAY ==
[~2024-12-25] VITALS: Ht 165.1 cm; Wt 75.0 kg
[2024-12-25] VITALS (7 sets, daily range): BP systolic 110–143; BP diastolic 56–92
[~2024-12-25 00:28] MED LIST changes: +FLORASTOR250 M1 PO
[2024-12-25] MEDS ORDERED: KETOROLAC TROMETHAMINE 30 MG/ML SDV IV ONE (00:45)
[2024-12-25] MEDS ORDERED: SODIUM CHLORIDE 0.9% 1,000 ML IV ONE (00:50)
[2024-12-25 00:57] LABS: BASO% 0.3 % (0-3); HEMATOCRIT 33.7 % (37.0-47.0); HEMOGLOBIN 10.7 g/dl (12.0-16.0); IMMATURE GRANULOCYTES 0.1 % (0.0-5.0); LYMPH% 30.8 % (15-41); MEAN CELL VOLUME 109.8 fL CALC (80.0-100.0); MEAN CORPUSCULAR HGB 34.9 pG CALC (26.0-32.0); MEAN CORPUSCULAR HGB CONC 31.8 g/dL CAL (32.0-36.0); MONO% 9.7 % (2-13); NEUT# 4.08 thou/uL (2.00-7.15); NEUT% 58.1 % (42-76); RED BLOOD COUNT 3.07 mill/uL (4.20-5.60); RED CELL DISTRI WIDTH 13.8 % (11.5-15.5)
[2024-12-25 01:14] LABS: BILIRUBIN, TOTAL 1.4 mg/dL (0.02-1.3); CREATININE 0.7 mg/dL (0.5-1.0); POTASSIUM 3.4 mmol/l (3.5-5.1)
[2024-12-25 01:24] LABS: ALBUMIN 3.4 g/dL (3.2-5.0); TOTAL PROTEIN 7.4 g/dL (6.3-8.2)
[2024-12-25 02:09] LABS: URINE BLOOD DIPSTICK Small (NEGATIVE); URINE CLARITY Slightly Cloudy; URINE COLOR Yellow; URINE GLUCOSE - DIPSTICK Negative (NEGATIVE); URINE KETONE Trace mg/dL (NEGATIVE); URINE LEUK ESTERASE Large (Negative); URINE NITRITE - DIPSTICK Positive (Negative); URINE PH 6.5 (4.5-8.0); URINE PROTEIN - DIPSTICK 100 mg/dL (NEG-TRACE)
[2024-12-25 02:14] LABS: URINE BACTERIA MANY hpf; URINE SQUAMOUS EPITHELIAL CELL MANY EPI/hpf (0-FEW); URINE WBC >100 WBC/hpf (0-5)
[2024-12-25] MEDS ORDERED: BACTRIM DS1 TAB PO (04:32)
[2024-12-25] MEDS ORDERED: SULFAMETHOXAZOLE W/TRIMETHOPRI 1 COMBO TAB PO ONE (04:35)
[2024-12-28] MEDS ORDERED: LEVOFLOXACIN750 MG PO (15:04)
== END 2024-12-25 04:57 | disposition home or self-care (01) | DRG 694 ==
LOC: ED 00:28
PROVIDERS: Emergency Medicine
DX: N20.2 Calculus of kidney with calculus of ureter (principal); Z59.00 Homelessness unspecified; R18.8 Other ascites; N39.0 Urinary tract infection, site not specified; Z16.12 Extended spectrum beta lactamase (ESBL) resistance; I12.9 Hypertensive chronic kidney disease with stage 1 through stage 4 chronic kidney disease, or unspecified chronic kidney disease; E11.22 Type 2 diabetes mellitus with diabetic chronic kidney disease; N18.9 Chronic kidney disease, unspecified; F19.10 Other psychoactive substance abuse, uncomplicated; J44.9 Chronic obstructive pulmonary disease, unspecified; F10.129 Alcohol abuse with intoxication, unspecified; Y90.8 Blood alcohol level of 240 mg/100 ml or more; Z91.199 Patient's noncompliance with other medical treatment and regimen due to unspecified reason; Z72.0 Tobacco use; Z87.442 Personal history of urinary calculi; B96.20 Unspecified Escherichia coli [E. coli] as the cause of diseases classified elsewhere